=== PATIENT | female | born 1945 | race Caucasian/White ===

== ENCOUNTER 2020-01-04 15:49 | Emergency (ER) | payer MEDICARE ==
[2020-01-04 16:34] LABS: #Eosinphils 0.1 thou/uL (0.0-0.7); #Lymphocytes 1.4 thou/uL (1.20-3.40); #Monocytes 0.5 thou/uL (0.11-0.59); #Neutrophils 4.4 thou/uL (1.40-6.50); %Basophils 0.5 % (0.0-1.0); %Eosinophils 2.1 % (0.0-10.0); %Lymphocytes 20.9 % (21.0-51.0); %Monocytes 7.9 % (0.0-10.0); %Neutrophils 68.5 % (42.0-75.0); Hemoglobin 12.6 g/dL (12.0-16.0); Mean Corpuscular HGB CONC 33.9 g/dL (32.0-36.0); Mean Corpuscular Hemoglobin 32.2 pg (27.0-31.0); Mean Corpuscular Volume 95.1 fL (78.0-98.0); Platelet Count 296 thou/uL (130-400); RBC Distribution Width 12.3 % (11.5-14.5); White Blood Cell (WBC) Count 6.5 thou/uL (4.8-10.8)
[2020-01-04 16:59] LABS: ALT (SGPT) 17 U/L (8-55); AST (SGOT) 26 U/L (5-34); Albumin 3.8 g/dL (3.4-4.8); Alkaline Phosphatase 167 U/L (40-110); Anion Gap 11 mmol/L (10-20); BUN (Urea Nitrogen) 13 mg/dL (9.8-20.1); Bilirubin, Total 0.3 mg/dL (0.2-1.2); Calc. Creatinine Clearance 0 mL/min (70-130); Calcium 9.8 mg/dL (7.8-10.44); Carbon Dioxide 30 mmol/L (23-31); Chloride 104 mmol/L (98-107); Estimated GFR-MDRD 85; Globulin 2.9 g/dL (2.4-3.5); Glucose 85 mg/dL (83-110); Lipase 53 U/L (8-78); Potassium 3.9 mmol/L (3.5-5.1); Protein, Total 6.7 g/dL (6.0-8.3); Sodium 141 mmol/L (136-145)
[2020-01-04 17:57] LABS: Bacteria/HPF 4+ HPF (None Seen); Bilirubin Negative (Negative); Blood, Urine Negative (Negative); Clarity Turbid (Clear); Glucose, Urine (Dipstick) Normal (Negative); Leukocyte 500 Leu/uL (Negative); Nitrite Negative (Negative); Protein, Urine (Dipstick) Negative (Neg-Trace); Squamous Epithelial 0-3 HPF (0-3); WBC/HPF 21-50 HPF (0-3)
[2020-01-04] MEDS ORDERED: Lidocaine 1% PF 5 ML VIAL ONE (21:46)
[2020-01-04] MEDS ORDERED: Morphine 2 MG/ML SYRINGE ONE (21:46)
[2020-01-04] MEDS ORDERED: Ondansetron ODT 4 MG TAB ONE (21:46)
[2020-01-04] MEDS ORDERED: cefTRIAXone\\ROCEPHIN 1 GM VIAL ONE (21:46)
[2020-01-04] MEDS ORDERED: Morphine 4 MG/ML VIAL ONE (21:49)
--- NOTE | 2020-01-04 22:03 | CT ---
CT ABDOMEN AND PELVIS PERFORMED WITHOUT CONTRAST ENHANCEMENT: 01/04/20 HISTORY: Left sided pain. COMPARISON: None. The lung bases are clear of any infiltrative process. Multiple calcified granulomas are seen within the liver and spleen. Evidence of a gastric bypass. The pancreas region appears unremarkable. The gallbladder has been removed. The right and left adrenal glands and right and left kidneys are normal in size. No obstruction or r enal calculi. There is a moderate amount of stool throughout the colon. No colon wall thickening or f ree fluid. CT OF PELVIS PERFORMED WITHOUT CONTRAST ENHANCEMENT: No adenopathy, mass or free fluid. The appendix region appears unremarkable. IMPRESSION: 1. No acute findings of the abdomen or pelvis. Findings suggesting constipation. 2. Postoperative changes of the spine are incidentally seen. POS: [id number]
== END 2020-01-04 23:01 | disposition home or self-care (01) ==
LOC: ERS 15:49
DX: S39.011A Strain of muscle, fascia and tendon of abdomen, initial encounter (principal); M25.552 Pain in left hip; N39.0 Urinary tract infection, site not specified; D64.9 Anemia, unspecified; M81.0 Age-related osteoporosis without current pathological fracture; D50.9 Iron deficiency anemia, unspecified; E03.9 Hypothyroidism, unspecified; Z79.899 Other long term (current) drug therapy; X58.XXXA Exposure to other specified factors, initial encounter
CPT/HCPCS: 36415; 74176; 80053; 81003; 81015; 83690; 85025; 87077; 87086; 87186; 96372; J0696; J2001; J2270; Q0162